=== PATIENT | male | born 1990 | race Caucasian/White ===

== ENCOUNTER 2019-02-21 12:42 | Emergency (ER) | payer OTHER ==
[2019-02-21] MEDS ORDERED: TDAP Vaccine 0.5 mL Syr IM ONE (12:58)
[2019-02-21] MEDS ORDERED: Lidocaine 5% Patch TD STA (12:58)
[2019-02-21 12:59] VITALS: BMI 31.7
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
[2019-02-21 13:13] VITALS: RESP 18; TEMP 98.4
--- NOTE | 2019-02-21 13:57 | RAD ---
Date of service: 02/21/2019 PROCEDURE: Radiographs of the Chest and Right Ribs. HISTORY: injury COMPARISON: None available. TECHNIQUE: Frontal radiograph of the chest and multiple oblique radiographs of the right ribs were obtained. 4 views obtained. FINDINGS: RIGHT RIBS: No fracture or focal lesion visualized. LUNGS: Clear. PLEURA: No pneumothorax or pleural fluid. CARDIOVASCULAR: Normal cardiac size. No pulmonary vascular congestion. No aortic atherosclerotic calcification present OTHER FINDINGS: None. IMPRESSION: Unremarkable radiographs of the chest and right ribs. No right rib fracture.
[2019-02-21 15:08] VITALS: BP 128/78; PULSE 78; O2SAT 100
== END 2019-02-21 15:25 | disposition home or self-care (01) ==
LOC: ED 12:42
DX: S20.211A Contusion of right front wall of thorax, initial encounter (principal); S60.512A Abrasion of left hand, initial encounter; S60.511A Abrasion of right hand, initial encounter; V03.90XA Pedestrian on foot injured in collision with car, pick-up truck or van, unspecified whether traffic or nontraffic accident, initial encounter; Y93.01 Activity, walking, marching and hiking; F17.210 Nicotine dependence, cigarettes, uncomplicated; G43.909 Migraine, unspecified, not intractable, without status migrainosus; Z23 Encounter for immunization